=== PATIENT | female | born 1990 | race Caucasian/White ===

== ENCOUNTER → 2017-10-19 | Outpatient (CLI) | payer MEDICAID, OTHER ==
[2017-10-19 13:26] LABS: BASOPHILS # (AUTO) 0.02 x10^3/uL (0-0.1); BASOPHILS % (AUTO) 1 % (0-1); EOSINOPHILS % (AUTO) 0 % (1-7); LYMPHOCYTES # (AUTO) 1.81 x10^3/uL (1-3.4); LYMPHOCYTES % (AUTO) 40 % (22-44); MD NO; MEAN CORPUSCULAR HEMOGLOBIN 29.8 pg (27.0-34.8); MEAN CORPUSCULAR HGB CONC 33.7 g/dL (32.4-35.8); MEAN CORPUSCULAR VOLUME 88.5 fL (80-100); MEAN PLATELET VOLUME 8.3 fL (7.4-10.4); MONOCYTES # (AUTO) 0.32 x10^3/uL (0.2-0.8); MONOCYTES % (AUTO) 7 % (2-9); NEUTROPHILS # (AUTO) 2.39 x10^3/uL (1.8-6.8); NEUTROPHILS % (AUTO) 53 % (42-75); PLATELET COUNT 235 x10^3/uL (130-400); RED BLOOD COUNT 4.59 x10^6/uL (3.82-5.3)
[2017-10-19 13:36] LABS: INTERNATIONAL NORMALIZED RATIO 0.98 (0.93-1.1); PROTHROMBIN TIME 10.2 Seconds (9.6-11.5)
[2017-10-19 13:38] LABS: ANION GAP 7 mmol/L (5-15); CALCIUM 8.8 mg/dL (8.5-10.1); CHLORIDE 111 mmol/L (98-107)
[2017-10-19 13:43] LABS: CULTURE INDICATED? YES; MICROSCOPIC AUTO
== END | disposition home or self-care (01) ==
LOC: LAB 12:35
PROVIDERS: ATTEND Neurological Surgery
DX: Z01.818 Encounter for other preprocedural examination (principal); M51.36 Other intervertebral disc degeneration, lumbar region
CPT/HCPCS: 36415; 71046; 80048; 81001; 85025; 85610; 85730; 87086; 93005

== ENCOUNTER 2017-10-23 07:10 | Inpatient (IN) | payer MEDICAID, OTHER ==
[~2017-10-23] VITALS: Ht 170.2 cm; Wt 101.0 kg
[~2017-10-23 07:10] MED LIST: BACITRACIN 50,000 UNIT ONE; BUPIVACAINE 0.25% ONE; THROMBIN 5,000 UNIT VIAL TP ONE
[2017-10-23] MEDS ORDERED: METH750T2 PO (08:17)
[2017-10-23] MEDS ORDERED: TOPI200T6 PO (08:17)
[2017-10-23] MEDS ORDERED: HYDR50CA2 PO (08:17)
[2017-10-23] MEDS ORDERED: NORE1TAB25 PO (08:17)
[2017-10-23] MEDS ORDERED: DULO60CA7 PO (08:17)
[2017-10-23] MEDS ORDERED: OXYC-307 PO (08:17)
[2017-10-23] MEDS ORDERED: [UNRECOGNIZED DRUG - CODE] PO (08:17)
[2017-10-23] MEDS ORDERED: QUET300T5 PO (08:17)
[2017-10-23] MEDS ORDERED: DICL50TA2 PO (08:17)
[2017-10-23] MEDS ORDERED: MELO15TA24 PO (08:17)
[2017-10-23] MEDS ORDERED: DICL75TA2 PO (08:17)
[2017-10-23] MEDS ORDERED: MORP30CP12 PO (08:17)
[2017-10-23] MEDS ORDERED: TOPI100T8 PO (08:17)
[2017-10-23] MEDS ORDERED: GABA600T2 PO (08:17)
[2017-10-23] MEDS ORDERED: FLUT16SP NAS (08:17)
[2017-10-23 08:21] VITALS: BP 123/76
[2017-10-23] MEDS ORDERED: LACTATED RINGERS 1,000 ML IV SCH (08:25)
[2017-10-23] MEDS ORDERED: FENTANYL PF 250 MCG/5ML ONE ×2 (08:36→11:32)
[2017-10-23] MEDS ORDERED: PROPOFOL 100 ML ONE (08:36)
[2017-10-23] MEDS ORDERED: MIDAZOLAM 1 MG/ML, 2ML ONE (08:36)
[2017-10-23] MEDS ORDERED: [UNRECOGNIZED DRUG - OTHER] (08:53)
[2017-10-23] MEDS ORDERED: CHOL2000 PO (08:53)
[2017-10-23] MEDS ORDERED: PLEASE ENTER HEIGHT AND WEIGHT MC SCH (09:00)
[2017-10-23] MEDS ORDERED: PROPOFOL 10 MG/ML, 20ML ONE (11:04)
[2017-10-23] MEDS ORDERED: DEXAMETHASONE 4 MG/ML, 1ML ONE ×2 (11:04→11:05)
[2017-10-23] MEDS ORDERED: CEFAZOLIN 1,000 MG ONE ×2 (11:05)
[2017-10-23] MEDS ORDERED: BUPIVACAINE/PF 0.25% EPIDPUSH ONE (11:08)
[2017-10-23] MEDS: BUPIVACAINE/PF 0.5% ONE ×2 (11:09→12:42)
[2017-10-23] MEDS ORDERED: FENTANYL PF 100 MCG/2ML ONE (13:17)
[2017-10-23] MEDS ORDERED: BUPIVACAINE/PF 0.5% INFIL ONE (13:20)
[2017-10-23] MEDS ORDERED: FENTANYL PF 100 MCG/2ML EPIDPUSH ONE (13:21)
[2017-10-23] MEDS ORDERED: ONDANSETRON 2MG/ML, 2ML ONE (13:33)
[2017-10-23] MEDS ORDERED: DIAZEPAM 5 MG/ML, 2ML IVPush PRN (14:00)
[2017-10-23] MEDS ORDERED: DIPHENHYDRAMINE 50 MG/ML, 1ML IVPush PRN (14:00)
[2017-10-23] MEDS ORDERED: PROMETHAZINE 25 MG/ML, 1ML IV PRN (14:00)
[2017-10-23] MEDS ORDERED: PHARMACY MAY ADJ FOR RENAL FX MC PRN (14:00)
[2017-10-23] MEDS ORDERED: BISACODYL 10 MG SUPP PR PRN (14:00)
[2017-10-23] MEDS ORDERED: FENTANYL PF 100 MCG/2ML IV PRN (14:00)
[2017-10-23] MEDS ORDERED: OXYcodone 5 MG/5 ML ORAL.SOL UDC PO PRN (14:00)
[2017-10-23] MEDS ORDERED: HYDROcodone/APAP 5/325 TABLET PO PRN (14:00)
[2017-10-23] MEDS ORDERED: hydrALAzine 20 MG/ML, 1ML IV PRN (14:00)
[2017-10-23] MEDS ORDERED: HYDROmorphone/PF 4 MG/ML, 1ML IM PRN (14:00)
[2017-10-23] MEDS ORDERED: PROMETHAZINE 25 MG/ML, 1ML IM PRN (14:00)
[2017-10-23] MEDS ORDERED: MEPERIDINE/PF 25MG/0.5ML IVPush PRN (14:00)
[2017-10-23] MEDS ORDERED: ACETAMINOPHEN 325 MG TABLET PO PRN (14:00)
[2017-10-23] MEDS ORDERED: ONDANSETRON 2MG/ML, 2ML IVPush PRN ×2 (14:00)
[2017-10-23] MEDS ORDERED: LABETALOL 5MG/ML, 20ML IV PRN (14:00)
[2017-10-23] MEDS ORDERED: SENNA/DOCUSATE TABLET PO PRN (14:00)
[2017-10-23] MEDS ORDERED: OXYcodone/APAP 5/325MG TABLET PO PRN (14:00)
[2017-10-23] MEDS ORDERED: BUPIVACAINE/PF 0.5% ONE (14:08)
[2017-10-23] MEDS ORDERED: ACETAMINOPHEN 650 MG/20.3 ML UDC ONE (14:11)
[2017-10-23] MEDS ORDERED: OXYcodone 5 MG/5 ML ORAL.SOL UDC ONE (14:12)
[2017-10-23] MEDS ORDERED: HYDROmorphone 2 MG/ML, 1ML ONE ×2 (14:21→15:19)
[2017-10-23] MEDS: HYDROmorphone 1 MG/ML, 1ML IV PRN ×6 (14:22→15:21)
[2017-10-23] MEDS ORDERED: OXYcodone IR 5MG TABLET PO PRN (14:30)
[2017-10-23] MEDS ORDERED: METHOCARBAMOL 750 MG TABLET ONE (14:35)
[2017-10-23] MEDS: METHOCARBAMOL 750 MG TABLET PO PRN ×2 (14:37→22:56)
[2017-10-23] MEDS: D5%-0.9% NACL+KCL 20MEQ 1,000 ML IV SCH (16:43)
[2017-10-23] MEDS: morphine SULFATE 10 MG/ML, 1ML IVPush PRN ×2 (16:57→19:43)
[2017-10-23] MEDS ORDERED: CEFAZOLIN PMX 1GM/50ML 50 ML IVPB SCH (18:00)
[2017-10-23] MEDS ORDERED: CEFAZOLIN 1,000 MG in SODIUM CHLORIDE 0.9% 50 ML IVPB SCH (18:00)
[2017-10-23] MEDS: HYDROcodone/APAP 10/325 MG TABLET PO PRN ×2 (18:29→22:56)
[2017-10-23] MEDS ORDERED: CIPROFLOXACIN 500 MG TABLET PO ONE (18:30)
[2017-10-23] MEDS: CEFAZOLIN PMX 1GM/50ML 50 ML IVPB SCH (19:43)
[2017-10-23 20:00] VITALS: BP 107/72
[2017-10-23] MEDS: CHOLECALCIFEROL 1,000 UNIT TABLET PO SCH (21:19)
[2017-10-23] MEDS: FLUTICASONE NASAL SPRAY 16GM NAS SCH (21:19)
[2017-10-23] MEDS: SODIUM CHLORIDE FLUSH 10ML SYR IVF SCH (21:20)
[2017-10-23] MEDS: NORETHINDRONE A E ESTRADIOL HOMEMEDPO SCH (21:53)
[2017-10-23] MEDS: QUETIAPINE 200 MG TABLET PO SCH (21:53)
[2017-10-23] MEDS: hydrOXyzine 50MG TABLET PO SCH (21:53)
[2017-10-23] MEDS: TOPIRAMATE 100 MG TABLET PO SCH (21:54)
[2017-10-23 23:42] VITALS: BP 104/68
[2017-10-24 02:00] VITALS: BP 97/65
[2017-10-24] MEDS: HYDROcodone/APAP 10/325 MG TABLET PO PRN ×5 (03:44→20:39)
[2017-10-24] MEDS: CEFAZOLIN PMX 1GM/50ML 50 ML IVPB SCH (03:44)
[2017-10-24] MEDS: D5%-0.9% NACL+KCL 20MEQ 1,000 ML IV SCH ×2 (03:45→15:51)
[2017-10-24 05:24] LABS: BASOPHILS # (AUTO) 0.02 x10^3/uL (0-0.1); BASOPHILS % (AUTO) 0 % (0-1); EOSINOPHILS % (AUTO) 0 % (1-7); LYMPHOCYTES # (AUTO) 2.31 x10^3/uL (1-3.4); LYMPHOCYTES % (AUTO) 29 % (22-44); MD NO; MEAN CORPUSCULAR HEMOGLOBIN 29.9 pg (27.0-34.8); MEAN CORPUSCULAR VOLUME 90.7 fL (80-100); MONOCYTES # (AUTO) 0.51 x10^3/uL (0.2-0.8); MONOCYTES % (AUTO) 6 % (2-9); NEUTROPHILS # (AUTO) 5.09 x10^3/uL (1.8-6.8); NEUTROPHILS % (AUTO) 64 % (42-75); PLATELET COUNT 235 x10^3/uL (130-400); RED BLOOD COUNT 3.76 x10^6/uL (3.82-5.3); RED CELL DISTRIBUTION WIDTH 14.1 % (9.6-15.2)
[2017-10-24 08:30] VITALS: BP 111/64
[2017-10-24] MEDS: DULOXETINE 30 MG CAPSULE.DR PO SCH (08:35)
[2017-10-24] MEDS: SODIUM CHLORIDE FLUSH 10ML SYR IVF SCH ×2 (08:35→22:11)
[2017-10-24] MEDS: GABAPENTIN 300 MG CAPSULE PO SCH (08:37)
[2017-10-24] MEDS: TOPIRAMATE 100 MG TABLET PO SCH ×2 (08:37→22:11)
[2017-10-24] MEDS: CHOLECALCIFEROL 1,000 UNIT TABLET PO SCH ×2 (08:38→22:11)
[2017-10-24] MEDS ORDERED: TOPIRAMATE 100 MG TABLET PO SCH (09:00)
[2017-10-24] MEDS ORDERED: hydrOXyzine 50MG TABLET PO SCH (09:00)
[2017-10-24] MEDS ORDERED: NORETHINDRONE A E ESTRADIOL HOMEMEDPO SCH (09:00)
[2017-10-24] MEDS ORDERED: QUETIAPINE 200 MG TABLET PO SCH (09:00)
[2017-10-24] MEDS ORDERED: QUETIAPINE 100MG TABLET PO SCH (09:00)
[2017-10-24] MEDS ORDERED: FLUTICASONE NASAL SPRAY 16GM NAS SCH (09:00)
[2017-10-24] MEDS: METHOCARBAMOL 1,000 MG in DEXTROSE 5% 100 ML IV SCH ×2 (10:24→17:27)
[2017-10-24] MEDS: FAMOTIDINE 20 MG TABLET PO SCH ×2 (10:24→22:11)
[2017-10-24] MEDS: DEXAMETHASONE 4 MG/ML, 1ML IV SCH ×3 (10:24→22:15)
[2017-10-24] MEDS: METHOCARBAMOL 750 MG TABLET PO SCH ×3 (10:49→20:21)
[2017-10-24 13:35] VITALS: BP 106/56
[2017-10-24 19:41] VITALS: BP 119/80
[2017-10-24] MEDS: NORETHINDRONE A E ESTRADIOL HOMEMEDPO SCH ×3 (21:00→22:26)
[2017-10-24] MEDS: FLUTICASONE NASAL SPRAY 16GM NAS SCH (22:11)
[2017-10-24] MEDS: hydrOXyzine 50MG TABLET PO SCH (22:11)
[2017-10-24] MEDS: QUETIAPINE 200 MG TABLET PO SCH (22:12)
[2017-10-25 00:13] VITALS: BP 114/72
[2017-10-25] MEDS: HYDROcodone/APAP 10/325 MG TABLET PO PRN ×5 (02:12→23:48)
[2017-10-25] MEDS: METHOCARBAMOL 1,000 MG in DEXTROSE 5% 100 ML IV SCH (02:12)
[2017-10-25] MEDS: DEXAMETHASONE 4 MG/ML, 1ML IV SCH (04:41)
[2017-10-25 05:33] LABS: ANION GAP 7 mmol/L (5-15); BASOPHILS # (AUTO) 0.02 x10^3/uL (0-0.1); BASOPHILS % (AUTO) 0 % (0-1); CALCIUM 7.4 mg/dL (8.5-10.1); CHLORIDE 114 mmol/L (98-107); EOSINOPHILS # (AUTO) 0.01 x10^3/uL (0-0.4); EOSINOPHILS % (AUTO) 0 % (1-7); LYMPHOCYTES # (AUTO) 1.18 x10^3/uL (1-3.4); LYMPHOCYTES % (AUTO) 16 % (22-44); MD NO; MEAN CORPUSCULAR HEMOGLOBIN 30.1 pg (27.0-34.8); MEAN CORPUSCULAR HGB CONC 33.5 g/dL (32.4-35.8); MEAN CORPUSCULAR VOLUME 89.8 fL (80-100); MEAN PLATELET VOLUME 9.1 fL (7.4-10.4); MONOCYTES # (AUTO) 0.28 x10^3/uL (0.2-0.8); MONOCYTES % (AUTO) 4 % (2-9); NEUTROPHILS # (AUTO) 5.84 x10^3/uL (1.8-6.8); NEUTROPHILS % (AUTO) 80 % (42-75); PLATELET COUNT 221 x10^3/uL (130-400); RED BLOOD COUNT 3.85 x10^6/uL (3.82-5.3); RED CELL DISTRIBUTION WIDTH 13.6 % (9.6-15.2)
[2017-10-25 05:35] LABS: CREATININE 0.69 mg/dL (0.55-1.02)
[2017-10-25] MEDS: D5%-0.9% NACL+KCL 20MEQ 1,000 ML IV SCH ×2 (06:10→21:21)
[2017-10-25 06:45] VITALS: BP 113/71
[2017-10-25] MEDS: FAMOTIDINE 20 MG TABLET PO SCH ×2 (08:03→22:39)
[2017-10-25] MEDS: TOPIRAMATE 100 MG TABLET PO SCH ×2 (08:03→22:39)
[2017-10-25] MEDS: GABAPENTIN 300 MG CAPSULE PO SCH (08:04)
[2017-10-25] MEDS: CHOLECALCIFEROL 1,000 UNIT TABLET PO SCH ×2 (08:05→22:39)
[2017-10-25] MEDS: DULOXETINE 30 MG CAPSULE.DR PO SCH (08:05)
[2017-10-25] MEDS: SODIUM CHLORIDE FLUSH 10ML SYR IVF SCH ×2 (08:09→21:22)
[2017-10-25] MEDS: METHOCARBAMOL 750 MG TABLET PO SCH ×4 (09:37→22:39)
[2017-10-25 13:13] VITALS: BP 100/67
[2017-10-25] MEDS: DEXAMETHASONE 4 MG/ML, 1ML IVPush SCH (17:50)
[2017-10-25 19:05] VITALS: BP 111/71
[2017-10-25] MEDS ORDERED: GABAPENTIN 300 MG CAPSULE PO SCH (21:00)
[2017-10-25] MEDS: FLUTICASONE NASAL SPRAY 16GM NAS SCH (22:38)
[2017-10-25] MEDS: hydrOXyzine 50MG TABLET PO SCH (22:39)
[2017-10-25] MEDS: QUETIAPINE 200 MG TABLET PO SCH (22:39)
[2017-10-26] MEDS: DEXAMETHASONE 4 MG/ML, 1ML IVPush SCH ×2 (02:17→10:09)
[2017-10-26 05:01] VITALS: BP 123/77
[2017-10-26] MEDS: HYDROcodone/APAP 10/325 MG TABLET PO PRN ×4 (05:24→20:22)
[2017-10-26] MEDS: METHOCARBAMOL 750 MG TABLET PO SCH ×4 (05:24→20:58)
[2017-10-26 05:25] LABS: BASOPHILS # (AUTO) 0.01 x10^3/uL (0-0.1); BASOPHILS % (AUTO) 0 % (0-1); EOSINOPHILS % (AUTO) 0 % (1-7); LYMPHOCYTES # (AUTO) 1.32 x10^3/uL (1-3.4); LYMPHOCYTES % (AUTO) 20 % (22-44); MD NO; MEAN CORPUSCULAR HEMOGLOBIN 30.9 pg (27.0-34.8); MEAN CORPUSCULAR HGB CONC 34.3 g/dL (32.4-35.8); MEAN PLATELET VOLUME 8.8 fL (7.4-10.4); MONOCYTES # (AUTO) 0.23 x10^3/uL (0.2-0.8); MONOCYTES % (AUTO) 4 % (2-9); NEUTROPHILS # (AUTO) 4.93 x10^3/uL (1.8-6.8); NEUTROPHILS % (AUTO) 76 % (42-75); PLATELET COUNT 221 x10^3/uL (130-400); RED BLOOD COUNT 3.64 x10^6/uL (3.82-5.3); RED CELL DISTRIBUTION WIDTH 13.8 % (9.6-15.2)
[2017-10-26 07:20] VITALS: BP 121/77
[2017-10-26] MEDS: SODIUM CHLORIDE FLUSH 10ML SYR IVF SCH ×2 (09:00→21:11)
[2017-10-26] MEDS: CHOLECALCIFEROL 1,000 UNIT TABLET PO SCH ×2 (10:09→20:57)
[2017-10-26] MEDS: TOPIRAMATE 100 MG TABLET PO SCH ×2 (10:10→21:11)
[2017-10-26] MEDS: FAMOTIDINE 20 MG TABLET PO SCH ×2 (10:10→21:09)
[2017-10-26] MEDS: DULOXETINE 30 MG CAPSULE.DR PO SCH (10:10)
[2017-10-26] MEDS: GABAPENTIN 300 MG CAPSULE PO SCH ×3 (10:56→20:58)
[2017-10-26 12:40] VITALS: BP 117/78
[2017-10-26] MEDS: DEXAMETHASONE 4 MG/ML, 1ML IV SCH ×2 (14:30→20:57)
[2017-10-26] MEDS: D5%-0.9% NACL+KCL 20MEQ 1,000 ML IV SCH (14:30)
[2017-10-26] MEDS: DOXYCYCLINE 100MG TABLET PO SCH ×2 (14:30→20:58)
[2017-10-26 20:07] VITALS: BP 110/72
[2017-10-26] MEDS: FLUTICASONE NASAL SPRAY 16GM NAS SCH (20:59)
[2017-10-26] MEDS: NORETHINDRONE A E ESTRADIOL HOMEMEDPO SCH (21:00)
[2017-10-26] MEDS: hydrOXyzine 50MG TABLET PO SCH (21:09)
[2017-10-26] MEDS: QUETIAPINE 200 MG TABLET PO SCH (21:10)
[2017-10-26] MEDS ORDERED: hydrOXyzine 50MG TABLET PO ONE (22:30)
[2017-10-27] MEDS: HYDROcodone/APAP 10/325 MG TABLET PO PRN ×6 (00:35→22:16)
[2017-10-27] MEDS: D5%-0.9% NACL+KCL 20MEQ 1,000 ML IV SCH ×3 (02:19→20:47)
[2017-10-27] MEDS: DEXAMETHASONE 4 MG/ML, 1ML IV SCH ×2 (03:10→09:16)
[2017-10-27 03:26] VITALS: BP 101/66
[2017-10-27 05:34] LABS: BASOPHILS # (AUTO) 0.01 x10^3/uL (0-0.1); BASOPHILS % (AUTO) 0 % (0-1); EOSINOPHILS % (AUTO) 0 % (1-7); LYMPHOCYTES # (AUTO) 1.76 x10^3/uL (1-3.4); LYMPHOCYTES % (AUTO) 27 % (22-44); MD NO; MEAN CORPUSCULAR HEMOGLOBIN 30.4 pg (27.0-34.8); MEAN CORPUSCULAR HGB CONC 33.8 g/dL (32.4-35.8); MEAN CORPUSCULAR VOLUME 90.2 fL (80-100); MEAN PLATELET VOLUME 8.9 fL (7.4-10.4); MONOCYTES # (AUTO) 0.21 x10^3/uL (0.2-0.8); MONOCYTES % (AUTO) 3 % (2-9); NEUTROPHILS # (AUTO) 4.61 x10^3/uL (1.8-6.8); NEUTROPHILS % (AUTO) 70 % (42-75); PLATELET COUNT 253 x10^3/uL (130-400); RED BLOOD COUNT 3.95 x10^6/uL (3.82-5.3); RED CELL DISTRIBUTION WIDTH 13.9 % (9.6-15.2)
[2017-10-27] MEDS: GABAPENTIN 300 MG CAPSULE PO SCH ×4 (06:09→20:43)
[2017-10-27] MEDS: METHOCARBAMOL 750 MG TABLET PO SCH ×4 (06:09→20:44)
[2017-10-27 07:55] VITALS: BP 106/69
[2017-10-27] MEDS: DULOXETINE 30 MG CAPSULE.DR PO SCH (09:16)
[2017-10-27] MEDS: SODIUM CHLORIDE FLUSH 10ML SYR IVF SCH ×2 (09:16→20:45)
[2017-10-27] MEDS: DOXYCYCLINE 100MG TABLET PO SCH ×2 (09:17→20:43)
[2017-10-27] MEDS: TOPIRAMATE 100 MG TABLET PO SCH ×2 (09:17→20:44)
[2017-10-27] MEDS: FAMOTIDINE 20 MG TABLET PO SCH ×2 (09:17→20:44)
[2017-10-27] MEDS: CHOLECALCIFEROL 1,000 UNIT TABLET PO SCH ×2 (09:17→20:44)
[2017-10-27 13:23] VITALS: BP 111/93
[2017-10-27 19:46] VITALS: BP 110/73
[2017-10-27] MEDS: hydrOXyzine 50MG TABLET PO SCH (20:44)
[2017-10-27] MEDS: FLUTICASONE NASAL SPRAY 16GM NAS SCH (20:44)
[2017-10-27] MEDS: QUETIAPINE 200 MG TABLET PO SCH (20:44)
[2017-10-27] MEDS: NORETHINDRONE A E ESTRADIOL HOMEMEDPO SCH (20:45)
[2017-10-28] MEDS: HYDROcodone/APAP 10/325 MG TABLET PO PRN ×6 (02:20→22:31)
[2017-10-28 02:27] VITALS: BP 103/68
[2017-10-28 05:30] LABS: BASOPHILS # (AUTO) 0.02 x10^3/uL (0-0.1); BASOPHILS % (AUTO) 0 % (0-1); EOSINOPHILS # (AUTO) 0.01 x10^3/uL (0-0.4); EOSINOPHILS % (AUTO) 0 % (1-7); LYMPHOCYTES # (AUTO) 4.13 x10^3/uL (1-3.4); LYMPHOCYTES % (AUTO) 52 % (22-44); MD NO; MEAN CORPUSCULAR HEMOGLOBIN 30.6 pg (27.0-34.8); MEAN CORPUSCULAR VOLUME 89.9 fL (80-100); MEAN PLATELET VOLUME 8.3 fL (7.4-10.4); MONOCYTES # (AUTO) 0.55 x10^3/uL (0.2-0.8); MONOCYTES % (AUTO) 7 % (2-9); NEUTROPHILS # (AUTO) 3.24 x10^3/uL (1.8-6.8); NEUTROPHILS % (AUTO) 41 % (42-75); PLATELET COUNT 238 x10^3/uL (130-400); RED BLOOD COUNT 3.52 x10^6/uL (3.82-5.3); RED CELL DISTRIBUTION WIDTH 14.1 % (9.6-15.2)
[2017-10-28] MEDS: GABAPENTIN 300 MG CAPSULE PO SCH ×4 (06:18→21:13)
[2017-10-28] MEDS: METHOCARBAMOL 750 MG TABLET PO SCH ×4 (06:18→21:13)
[2017-10-28] MEDS: DOXYCYCLINE 100MG TABLET PO SCH ×2 (08:10→21:11)
[2017-10-28] MEDS: TOPIRAMATE 100 MG TABLET PO SCH ×2 (08:10→21:12)
[2017-10-28] MEDS: CHOLECALCIFEROL 1,000 UNIT TABLET PO SCH ×2 (08:10→21:12)
[2017-10-28] MEDS: DULOXETINE 30 MG CAPSULE.DR PO SCH (08:10)
[2017-10-28] MEDS: FAMOTIDINE 20 MG TABLET PO SCH ×2 (08:10→21:11)
[2017-10-28] MEDS: SODIUM CHLORIDE FLUSH 10ML SYR IVF SCH ×2 (08:11→21:17)
[2017-10-28 08:17] VITALS: BP 106/70
[2017-10-28] MEDS: KETOROLAC 30 MG/1 ML IVPush PRN ×3 (09:52→22:31)
[2017-10-28 14:00] VITALS: BP 106/70
[2017-10-28 19:39] VITALS: BP 102/67
[2017-10-28] MEDS: D5%-0.9% NACL+KCL 20MEQ 1,000 ML IV SCH (21:00)
[2017-10-28] MEDS: hydrOXyzine 50MG TABLET PO SCH (21:13)
[2017-10-28] MEDS: QUETIAPINE 200 MG TABLET PO SCH (21:17)
[2017-10-28] MEDS: NORETHINDRONE A E ESTRADIOL HOMEMEDPO SCH (21:17)
[2017-10-28] MEDS: FLUTICASONE NASAL SPRAY 16GM NAS SCH (21:18)
[2017-10-29] MEDS: HYDROcodone/APAP 10/325 MG TABLET PO PRN ×3 (02:39→15:28)
[2017-10-29 03:00] VITALS: BP 95/63
[2017-10-29] MEDS: KETOROLAC 30 MG/1 ML IVPush PRN (04:49)
[2017-10-29] MEDS: METHOCARBAMOL 750 MG TABLET PO SCH ×3 (06:32→15:28)
[2017-10-29] MEDS: GABAPENTIN 300 MG CAPSULE PO SCH ×3 (06:32→15:28)
[2017-10-29 06:35] LABS: BASOPHILS # (AUTO) 0.03 x10^3/uL (0-0.1); BASOPHILS % (AUTO) 1 % (0-1); EOSINOPHILS # (AUTO) 0.01 x10^3/uL (0-0.4); EOSINOPHILS % (AUTO) 0 % (1-7); LYMPHOCYTES # (AUTO) 3.45 x10^3/uL (1-3.4); LYMPHOCYTES % (AUTO) 48 % (22-44); MD NO; MEAN CORPUSCULAR HEMOGLOBIN 30.2 pg (27.0-34.8); MEAN CORPUSCULAR HGB CONC 33.6 g/dL (32.4-35.8); MEAN CORPUSCULAR VOLUME 89.9 fL (80-100); MEAN PLATELET VOLUME 8.1 fL (7.4-10.4); MONOCYTES # (AUTO) 0.46 x10^3/uL (0.2-0.8); MONOCYTES % (AUTO) 6 % (2-9); NEUTROPHILS # (AUTO) 3.24 x10^3/uL (1.8-6.8); NEUTROPHILS % (AUTO) 45 % (42-75); PLATELET COUNT 249 x10^3/uL (130-400); RED BLOOD COUNT 3.67 x10^6/uL (3.82-5.3); RED CELL DISTRIBUTION WIDTH 14.4 % (9.6-15.2)
[2017-10-29 08:27] VITALS: BP 95/63
[2017-10-29] MEDS: DULOXETINE 30 MG CAPSULE.DR PO SCH (08:41)
[2017-10-29] MEDS: DOXYCYCLINE 100MG TABLET PO SCH (08:42)
[2017-10-29] MEDS: TOPIRAMATE 100 MG TABLET PO SCH (08:42)
[2017-10-29] MEDS: FAMOTIDINE 20 MG TABLET PO SCH (08:42)
[2017-10-29] MEDS: CHOLECALCIFEROL 1,000 UNIT TABLET PO SCH (08:42)
[2017-10-29] MEDS: SODIUM CHLORIDE FLUSH 10ML SYR IVF SCH (08:52)
[2017-10-29] MEDS ORDERED: POLYETHYLENE GLYCOL 17 GM PACKET PO SCH (09:30)
[2017-10-29] MEDS ORDERED: DEXAMETHASONE 4 MG/ML, 1ML IV ONE (09:30)
[2017-10-29] MEDS ORDERED: DEXAMETHASONE 4 MG/ML, 1ML IV SCH ×2 (09:30→15:30)
[2017-10-29] MEDS ORDERED: morphine SULFATE 10 MG/ML, 1ML IVPush PRN (09:30)
[2017-10-29] MEDS ORDERED: ENOXAPARIN 30 MG/0.3 ML SQ SCH (09:30)
[2017-10-29] MEDS: D5%-0.9% NACL+KCL 20MEQ 1,000 ML IV SCH (10:20)
[2017-10-29] MEDS ORDERED: METH750T87 PO (11:36)
[2017-10-29] MEDS ORDERED: ONDA4TAB7 PO (11:37)
[2017-10-29] MEDS ORDERED: HYDR-3307 PO (11:37)
[2017-10-29] MEDS ORDERED: BISA10SU2 PR (11:37)
[2017-10-29] MEDS ORDERED: SENN-31 PO (11:38)
[2017-10-29] MEDS ORDERED: METH4TAB2 PO (11:39)
[2017-10-29] MEDS ORDERED: ENOX30SY4 SC (11:40)
[2017-10-29 14:45] VITALS: BP 115/79
[2017-10-29 16:19] VITALS: BP 132/83
== END 2017-10-29 16:30 | DRG 460 ==
LOC: ORIP 07:10 → 4NOR 15:44
PROVIDERS: ADMIT Neurological Surgery; ATTEND Neurological Surgery
PROC: 01NB0ZZ Release Lumbar Nerve, Open Approach (ICD-10-PCS; 2017-10-23)
PROC: 4A11X4G Monitoring of Peripheral Nervous Electrical Activity, Intraoperative, External Approach (ICD-10-PCS; 2017-10-23)
PROC: 0SG00A0 Fusion of Lumbar Vertebral Joint with Interbody Fusion Device, Anterior Approach, Anterior Column, Open Approach (ICD-10-PCS; principal; 2017-10-23 10:00)
DX: M48.061 Spinal stenosis, lumbar region without neurogenic claudication (principal); G89.4 Chronic pain syndrome; M43.16 Spondylolisthesis, lumbar region; M51.16 Intervertebral disc disorders with radiculopathy, lumbar region; M71.30 Other bursal cyst, unspecified site; Z79.899 Other long term (current) drug therapy; Z88.6 Allergy status to analgesic agent
CPT/HCPCS: 36415; 72100; 72131; 72148; 80048; 81025; 85025; C1713; C1767; C1776; J0690; J1100; J1170; J1650; J1885; J2250; J2405; J2704; J3010; J3360; J3490; C1760; C1762; J2270; J2800; J3480

== ENCOUNTER 2019-03-09 13:59 | Outpatient (CLI) | payer MEDICAID ==
[~2019-03-09 13:59] MED LIST changes: -BACITRACIN 50,000 UNIT ONE; +BISA10SU2 PR; -BUPIVACAINE 0.25% ONE; +CHOL2000 PO; +DICL50TA2 PO; +DICL75TA3 PO; +DULO60CA7 PO; +ENOX30SY4 SC; +FLUT16SP NAS; +GABA600T7 PO; +HYDR-3307 PO; +HYDR50CA2 PO; +MELO15TA24 PO; +METH4TAB2 PO; +METH750T2 PO; +METH750T87 PO; +MORP30CP12 PO; +NORE1TAB25 PO; +ONDA4TAB7 PO; +OXYC-307 PO; +QUET300T5 PO; +QUET300T67 PO; +SENN-31 PO; -THROMBIN 5,000 UNIT VIAL TP ONE; +TOPI100T8 PO; +TOPI200T6 PO; +[UNRECOGNIZED DRUG - OTHER]
== END 2019-03-09 23:59 | disposition home or self-care (01) ==
LOC: CFH 13:59
PROVIDERS: ATTEND Emergency Medicine
DX: R10.9 Unspecified abdominal pain (principal)
CPT/HCPCS: 76700

== ENCOUNTER 2019-05-21 11:48 | Emergency (ER) | payer MEDICAID ==
[~2019-05-21] VITALS: Ht 170.2 cm; Wt 122.0 kg
[2019-05-21 17:40] VITALS: BP 159/80
== END 2019-05-21 21:20 ==
LOC: ED 15:51
DX: R10.13 Epigastric pain (principal); Z90.49 Acquired absence of other specified parts of digestive tract; Z87.19 Personal history of other diseases of the digestive system
CPT/HCPCS: 36415; 74021; 76700; 80053; 80074; 80307; 81001; 83690; 84703; 85025; 86038; 87086; 96374; 99284; J3010

== ENCOUNTER 2019-12-03 09:17 | Day surgery (SDC) | payer MEDICAID ==
[~2019-12-03] VITALS: Ht 170.2 cm; Wt 132.3 kg
[~2019-12-03 09:17] MED LIST changes: -BISA10SU2 PR; +BISA10SU4 PR; -FLUT16SP NAS; +FLUT16SP24 NAS; -HYDR-3307 PO; +HYDR-36 PO
[2019-12-03] MEDS ORDERED: LACTATED RINGERS 1,000 ML IV SCH (09:39)
[2019-12-03 09:52] VITALS: BP 129/84
[2019-12-03] MEDS ORDERED: MULT-672 PO (10:04)
[2019-12-03] MEDS ORDERED: MIRT30TA97 PO (10:04)
[2019-12-03] MEDS ORDERED: MONT10TA11 PO (10:04)
[2019-12-03] MEDS ORDERED: LIOT5TAB11 PO (10:04)
[2019-12-03] MEDS ORDERED: AMIT25TA PO (10:04)
[2019-12-03] MEDS ORDERED: LUTE6TAB PO (10:04)
[2019-12-03] MEDS ORDERED: OMEP-110 PO (10:04)
[2019-12-03] MEDS ORDERED: OXYC10TA6 PO (10:04)
[2019-12-03] MEDS ORDERED: DICY10CA3 PO (10:04)
[2019-12-03] MEDS ORDERED: TAMS-11 PO (10:04)
[2019-12-03] MEDS ORDERED: DICL75TA3 PO (10:04)
[2019-12-03] MEDS ORDERED: PROPOFOL 50 ML ONE (10:55)
[2019-12-03] MEDS ORDERED: ACETAMINOPHEN 325 MG TABLET PO PRN (11:00)
[2019-12-03] MEDS ORDERED: PROMETHAZINE 25 MG/ML, 1ML IV PRN (11:00)
[2019-12-03] MEDS ORDERED: ONDANSETRON 2MG/ML, 2ML IV PRN (11:00)
[2019-12-03] MEDS ORDERED: MEPERIDINE/PF 25MG/ML,1ML IVPush PRN (11:00)
[2019-12-03] MEDS ORDERED: FENTANYL PF 100 MCG/2ML IV PRN (11:00)
[2019-12-03] MEDS ORDERED: hydrALAzine 20 MG/ML, 1ML IV PRN (11:00)
[2019-12-03] MEDS ORDERED: OXYcodone 5 MG/5 ML ORAL.SOL UDC PO PRN (11:00)
[2019-12-03] MEDS ORDERED: LABETALOL 5MG/ML, 20ML IV PRN (11:00)
[2019-12-03] MEDS ORDERED: EPHEDRINE 50 MG/ML, 1ML IVPush PRN (11:00)
[2019-12-03] MEDS ORDERED: HYDROmorphone 2 MG/ML, 1ML IVPush PRN (11:00)
== END 2019-12-03 12:15 | disposition home or self-care (01) ==
LOC: OUT 09:17
PROVIDERS: ATTEND Internal Medicine Gastroenterology
DX: R10.10 Upper abdominal pain, unspecified (principal); R19.7 Diarrhea, unspecified; K29.70 Gastritis, unspecified, without bleeding; K31.9 Disease of stomach and duodenum, unspecified; K21.9 Gastro-esophageal reflux disease without esophagitis; G43.909 Migraine, unspecified, not intractable, without status migrainosus; G47.00 Insomnia, unspecified; Z79.899 Other long term (current) drug therapy; Z90.49 Acquired absence of other specified parts of digestive tract; Z98.890 Other specified postprocedural states
CPT/HCPCS: 36415; 43239; 84703; 88305; J2704